=== PATIENT | female | born 1985 ===

== ENCOUNTER 2019-08-10 05:12 | Inpatient (IN) | payer MEDICAID ==
[2019-08-10] MEDS ORDERED: Lidocaine 1% 50 ML MDV INJECT PRN (05:47)
[2019-08-10] MEDS ORDERED: Tranexamic Acid 1,000 MG in Sodium Chloride 0.9% 100 ML IV PRN (05:47)
[2019-08-10] MEDS ORDERED: Sodium Chloride 0.9% 10 ML Syringe FLUSH PRN (05:47)
[2019-08-10] MEDS ORDERED: Ondansetron 4 MG/2 ML SDV IVPUSH PRN (05:47)
[2019-08-10] MEDS ORDERED: Water For Irrigation,Sterile 1,000 ML Container IRR PRN (05:47)
[2019-08-10] MEDS ORDERED: Misoprostol 200 MCG Tab PO PRN (05:47)
[2019-08-10] MEDS ORDERED: Methylergonovine 0.2 MG/1 ML Amp IM PRN (05:47)
[2019-08-10] MEDS ORDERED: Sodium Chloride 0.9% 2.5 ML Syringe FLUSH PRN (05:47)
[2019-08-10] MEDS ORDERED: Carboprost Tromethamine 250 MCG/1 ML Amp IM PRN (05:47)
[2019-08-10] MEDS ORDERED: Nalbuphine 10 MG/1 ML Vial IVPUSH PRN (05:47)
[2019-08-10] MEDS ORDERED: Sodium Chloride 0.9% 10 ML SDV IV PRN (05:47)
[2019-08-10] MEDS ORDERED: Terbutaline 1 MG/ML SDV SUBCUT PRN (05:52)
[2019-08-10] MEDS ORDERED: Oxytocin/0.9 % Sodium Chloride 30 UNIT/500 ML BAG IV SCH ×2 (06:00)
[2019-08-10] MEDS: Lactated Ringers 1,000 ML IV SCH ×2 (06:41→10:14)
[2019-08-10] MEDS ORDERED: fentaNYL 100 MCG/2 ML SDV ONE (08:50)
[2019-08-10] MEDS ORDERED: Ropivacaine HCl/PF 100 ML ONE (08:50)
--- NOTE | 2019-08-10 08:54 | PCM.LDHP ---
L&D History of Present Illness - General Date of Service: 08/10/19 Admit Problem/Dx: Patient Status Order with Admit Dx/Problem 08/10/19 05:48 Patient Status [ADT] Routine Admission Diagnosis/Problem Admission Diagnosis/Problem 08/10/19 08:48 33yo EDC by LMP 07/28/2019 41 6/7wks Trans from [facility] and is followed by Dr Suarez in the clinic. O+, RI, GBS neg. IOL postdates. Source of Information: Patient History Limitations: Reports: No Limitations - History of Present Illness Timing/Duration: Reports: minutes: Location, : Reports: Abdomen Quality: Reports: Stabbing, Throbbing Severity: Moderate Improves with: Reports: None Worsens with: Reports: None Associated Symptoms: Reports: N - Related Data Allergies/Adverse Reactions: Allergies Allergy/AdvReac Type Severity Reaction Status Date / Time No Known Allergies Allergy Verified 08/10/19 05:46 Past Medical History HEENT History: Reports: None Cardiovascular History: Reports: None Respiratory History: Reports: None Gastrointestinal History: Reports: None Genitourinary History: Reports: None 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: 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 History: Reports: None Neurological History: Reports: None Psychiatric History: Reports: None Endocrine/Metabolic History: Reports: None Hematologic History: Reports: None Immunologic History: Reports: None Oncologic (Cancer) History: Reports: None Dermatologic History: Reports: None - Infectious Disease History Infectious Disease History: Reports: Chicken Pox - Past Surgical History Head Surgeries/Procedures: Reports: None HEENT Surgical History: Reports: None Cardiovascular Surgical History: Reports: None Respiratory Surgical History: Reports: None GI Surgical History: Reports: None Female Surgical History: Reports: None Endocrine Surgical History: Reports: None Neurological Surgical History: Reports: None 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 Surgical History: Reports: None Oncologic Surgical History: Reports: None Dermatological Surgical History: Reports: None Social & Family History - Family History HEENT: Reports: None Cardiac: Reports: None Respiratory: Reports: None GI: Reports: None : Reports: None OBGYN: Reports: None 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: Reports: None Neurological: Reports: None Psychiatric: Reports: None Endocrine/Metabolic: Reports: None Hematologic: Reports: None Immunologic: Reports: None Dermatologic: Reports: None Oncologic: Reports: None - Tobacco Use Smoking Status *Q: Never Smoker Second Hand Smoke Exposure: No - Caffeine Use Caffeine Use: Reports: None - Recreational Drug Use Recreational Drug Use: No H&P Review of Systems - Review of Systems: Review Of Systems: See Below General: Reports: No Symptoms HEENT: Reports: No Symptoms Pulmonary: Reports: No Symptoms Cardiovascular: Reports: No Symptoms Gastrointestinal: Reports: No Symptoms Genitourinary: Reports: No Symptoms 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: Reports: No Symptoms Skin: Reports: No Symptoms Psychiatric: Reports: No Symptoms Neurological: Reports: No Symptoms Hematologic/Lymphatic: Reports: No Symptoms Immunologic: Reports: No Symptoms L&D Exam - Exam Exam: See Below - Vital Signs Weight: 203 kg - OB Specific Contraction Intensity: Moderate Movement: Active Heart Tones: Present Heart Tones per Min: 145 Heart Rate (FHR) Variability: Moderate (6-25 bmp) Presentation: Vertex - Romero Score Romero Score Cervix Position: Anterior Romero Score Consistency: Soft Romero Score Effacement: 51-70% Romero Score Dilation: 3-4 cm Romero Score Infant's Station: -3 Romero Score Total: 8 - Exam General: Alert, Oriented, Cooperative HEENT: Hearing Intact Lungs: Normal Respiratory Effort GI/Abdominal Exam: Soft, Non-Tender, Pelvis Stable Rectal Exam: Deferred Genitourinary: Normal external exam, Normal bimanual exam, Cervical dilitation. No: Cervical fluid, Vaginal bleeding Back Exam: Normal Inspection, Full Range of Motion Extremities: Normal Inspection, Normal Range of Motion, Non-Tender, No Pedal Edema Skin: Warm, Dry, Intact Neurological: Cranial Nerves Intact, Reflexes Equal Bilateral, Strength Equal Bilateral, Normal Gait, Normal Speech, Normal Tone, Sensation Intact Psychiatric: Alert, Normal Affect, Normal Mood - Patient Data Lab Results Last 24 hrs: Laboratory Results - last 24 hr 08/10/19 08/10/19 Range/Units 06:09 06:09 WBC 10.64 (4.0-11.0) K/uL RBC 4.56 (4.30-5.90) M/uL Hgb 12.6 (12.0-16.0) g/dL Hct 38.5 (36.0-46.0) % MCV 84.4 (80.0-98.0) fL MCH 27.6 (27.0-32.0) pg MCHC 32.7 (31.0-37.0) g/dL RDW Std Deviation 40.0 (28.0-62.0) fl RDW Coeff of Samantha 13 (11.0-15.0) % Plt Count 313 (150-400) K/uL MPV 9.80 (7.40-12.00) fL Nucleated RBC % 0.0 /100WBC Nucleated RBCs # 0 K/uL Blood Type O POSITIVE Antibody Screen NEGATIVE Result Diagrams: 08/10/19 06:09 - Problem List (1) Grand multiparity in labor and delivery SNOMED Code(s): 389323308, 650786508 ICD Code: O09.40 - SUPERVISION OF W GRAND MULTIPARITY, UNSP TRIMESTER Status: Acute Priority: High Current Visit: Yes Qualifiers: Trimester: third trimester Qualified Code(s): O09.43 - Supervision of with grand multiparity, third trimester (2) Limited care SNOMED Code(s): 910369404 ICD Code: O09.30 - SUPRVSN OF PREG W INSUFFICIENT ANTENAT CARE, UNSP TRIMESTER Status: Acute Priority: High Current Visit: Yes Qualifiers: Trimester: third trimester Qualified Code(s): O09.33 - Supervision of with insufficient care, third trimester Problem List Initiated/Reviewed/Updated: Yes Orders Last 24hrs: Active Orders 24 hr Category Date Time Status Patient Status [ADT] Routine ADT 08/10/19 05:48 Active Bedrest Bathroom Privileges [RC] ASDIRECTED Care 08/10/19 05:52 Active Communication Order [RC] ASDIRECTED Care 08/10/19 05:52 Active May Shower [RC] ASDIRECTED Care 08/10/19 05:48 Active Notify Provider [RC] PRN Care 08/10/19 05:48 Active Oxygen Therapy [RC] ASDIRECTED Care 08/10/19 05:52 Active Up ad Nahomy [RC] ASDIRECTED Care 08/10/19 05:48 Active Vital Signs [RC] PER UNIT ROUTINE Care 08/10/19 05:48 Active Regular Diet [DIET] Diet 08/10/19 Breakfast Active RAPID PLASMA REAGIN, QUANT [REF] Routine Lab 08/10/19 06:09 Received Carboprost Tromethamine [Hemabate DS] Med 08/10/19 05:47 Active 250 mcg IM ASDIRECTED PRN Lactated Ringers [Ringers, Lactated] 1,000 ml Med 08/10/19 06:00 Active IV ASDIRECTED Lidocaine 1% [Xylocaine 1%] Med 08/10/19 05:47 Active 50 ml INJECT ONETIME PRN Methylergonovine [Methergine] Med 08/10/19 05:47 Active 0.2 mg IM ASDIRECTED PRN Nalbuphine [Nubain] Med 08/10/19 05:47 Active 10 mg IVPUSH Q1H PRN Ondansetron [Zofran] Med 08/10/19 05:47 Active 4 mg IVPUSH Q6H PRN Oxytocin/0.9 % Sodium Chloride [Oxytocin 30 Unit/500 ML Med 08/10/19 06:00 Active -NS] 30 unit in 500 ml IV TITRATE Oxytocin/0.9 % Sodium Chloride [Oxytocin 30 Unit/500 ML Med 08/10/19 06:00 Active -NS] 30 unit in 500 ml IV TITRATE Sodium Chloride 0.9% [Normal Saline] Med 08/10/19 05:47 Active 10 ml IV ASDIRECTED PRN Sodium Chloride 0.9% [Saline Flush] Med 08/10/19 05:47 Active 10 ml FLUSH ASDIRECTED PRN Sodium Chloride 0.9% [Saline Flush] Med 08/10/19 05:47 Active 2.5 ml FLUSH ASDIRECTED PRN Terbutaline [Brethine] Med 08/10/19 05:52 Active 0.25 mg SUBCUT ASDIRECTED PRN Tranexamic Acid [Cyklokapron] 1,000 mg Med 08/10/19 05:47 Active Sodium Chloride 0.9% [Normal Saline] 100 ml IV ONETIME Water For Irrigation,Sterile [Sterile Water for Med 08/10/19 05:47 Active Irrigation] 1,000 ml IRR ASDIRECTED PRN miSOPROStoL [Cytotec] Med 08/10/19 05:47 Active 200 mcg PO ONETIME PRN Scalp Electrode [WOMSER] Per Unit Routine Oth 08/10/19 05:48 Ordered Medication Administration Instruction [OM.PC] Q3H Oth 08/10/19 06:00 Ordered Peripheral IV Insertion Adult [OM.PC] Routine Oth 08/10/19 05:48 Ordered Resuscitation Status Routine Resus Stat 08/10/19 05:47 Ordered Medication Orders Carboprost Tromethamine (Hemabate Ds) 250 mcg IM ASDIRECTED PRN PRN Reason: Post Hemorrhage Lactated Ringer's (Ringers, Lactated) 1,000 mls @ 150 mls/hr IV ASDIRECTED ORI Last Admin: 08/10/19 06:41 Dose: 150 mls/hr Oxytocin/Sodium Chloride (Oxytocin 30 Unit/500 Ml-Ns) 30 unit in 500 mls @ 999 mls/hr IV TITRATE ORI Tranexamic Acid 1,000 mg/ (Sodium Chloride) 110 mls @ 660 mls/hr IV ONETIME PRN PRN Reason: Bleeding Oxytocin/Sodium Chloride (Oxytocin 30 Unit/500 Ml-Ns) 30 unit in 500 mls @ 2 mls/hr IV TITRATE ORI; Protocol Last Titration: 08/10/19 08:30 Dose: 8 munits/min, 8 mls/hr Titration: 08/10/19 08:04 Dose: 6 munits/min, 6 mls/hr Titration: 08/10/19 07:20 Dose: 4 munits/min, 4 mls/hr Admin: 08/10/19 06:45 Dose: 2 munits/min, 2 mls/hr Lidocaine HCl (Xylocaine 1%) 50 ml INJECT ONETIME PRN PRN Reason: Laceration repair Methylergonovine Maleate (Methergine) 0.2 mg IM ASDIRECTED PRN PRN Reason: Post Hemorrhage Misoprostol (Cytotec) 200 mcg PO ONETIME PRN PRN Reason: Post Hemorrhage Nalbuphine HCl (Nubain) 10 mg IVPUSH Q1H PRN PRN Reason: Pain (severe 7-10) Ondansetron HCl (Zofran) 4 mg IVPUSH Q6H PRN PRN Reason: Nausea/Vomiting Sodium Chloride (Saline Flush) 10 ml FLUSH ASDIRECTED PRN PRN Reason: Keep Vein Open Sodium Chloride (Saline Flush) 2.5 ml FLUSH ASDIRECTED PRN PRN Reason: Keep Vein Open Sodium Chloride (Normal Saline) 10 ml IV ASDIRECTED PRN PRN Reason: IV Use Sterile Water (Sterile Water For Irrigation) 1,000 ml IRR ASDIRECTED PRN PRN Reason: delivery Terbutaline Sulfate (Brethine) 0.25 mg SUBCUT ASDIRECTED PRN PRN Reason: Tacysystole Assessment/Plan Comment:: IOL A: 33yo EDC by LMP 07/28/2019 41 6/7wks Trans from [place] and is followed by Dr Suarez in the clinic. O+, RI, GBS neg. IOL postdates. P: Admit, epidural now. Anticipate , Dr Suarez updated.
--- NOTE | 2019-08-10 09:12 | PCM.PREANE ---
Preanesthetic Assessment - Anesthesia/Transfusion/Family Hx Anesthesia History: Prior Anesthesia Without Reaction Family History of Anesthesia Reaction: No Transfusion History: No Prior Transfusion(s) Type of Transfusion Reactions: Reports: Unknown - Physical Assessment NPO Status Date: 08/10/19 NPO Status Time: 06:00 Height: 1.78 m Weight: 203 kg ASA Class: 1 (1) Mental Status: Alert & Oriented x3 Dentition: Reports: Normal Dentition - Lab Values: Laboratory Last Values WBC 10.64 K/uL (4.0-11.0) 08/10/19 06:09 RBC 4.56 M/uL (4.30-5.90) 08/10/19 06:09 Hgb 12.6 g/dL (12.0-16.0) 08/10/19 06:09 Hct 38.5 % (36.0-46.0) 08/10/19 06:09 MCV 84.4 fL (80.0-98.0) 08/10/19 06:09 MCH 27.6 pg (27.0-32.0) 08/10/19 06:09 MCHC 32.7 g/dL (31.0-37.0) 08/10/19 06:09 RDW Std Deviation 40.0 fl (28.0-62.0) 08/10/19 06:09 RDW Coeff of Samantha 13 % (11.0-15.0) 08/10/19 06:09 Plt Count 313 K/uL (150-400) 08/10/19 06:09 MPV 9.80 fL (7.40-12.00) 08/10/19 06:09 Nucleated RBC % 0.0 /100WBC 08/10/19 06:09 Nucleated RBCs # 0 K/uL 08/10/19 06:09 Blood Type O POSITIVE 08/10/19 06:09 Antibody Screen NEGATIVE 08/10/19 06:09 - Allergies Allergies/Adverse Reactions: Allergies Allergy/AdvReac Type Severity Reaction Status Date / Time No Known Allergies Allergy Verified 08/10/19 05:46 - Acknowledgements Anesthesia Type Planned: Epidural Pt an Appropriate Candidate for the Planned Anesthesia: Yes Alternatives and Risks of Anesthesia Discussed w Pt/Guardian: Yes Pt/Guardian Understands and Agrees with Anesthesia Plan: Yes PreAnesthesia Questionnaire HEENT History: Reports: None Cardiovascular History: Reports: None Respiratory History: Reports: None Gastrointestinal History: Reports: None Genitourinary History: Reports: 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: 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 History: Reports: None Neurological History: Reports: None Psychiatric History: Reports: None Endocrine/Metabolic History: Reports: None Hematologic History: Reports: None Immunologic History: Reports: None Oncologic (Cancer) History: Reports: None Dermatologic History: Reports: None - Infectious Disease History Infectious Disease History: Reports: Chicken Pox - Past Surgical History Head Surgeries/Procedures: Reports: None HEENT Surgical History: Reports: None Cardiovascular Surgical History: Reports: None Respiratory Surgical History: Reports: None GI Surgical History: Reports: None Female Surgical History: Reports: None Endocrine Surgical History: Reports: None Neurological Surgical History: Reports: None 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 Surgical History: Reports: None Oncologic Surgical History: Reports: None Dermatological Surgical History: Reports: None - SUBSTANCE USE Smoking Status *Q: Never Smoker Second Hand Smoke Exposure: No Recreational Drug Use History: No - CURRENT (IN HOUSE) MEDS Current Meds: Current Medications Carboprost Tromethamine (Hemabate Ds) 250 mcg IM ASDIRECTED PRN PRN Reason: Post Hemorrhage Lactated Ringer's (Ringers, Lactated) 1,000 mls @ 150 mls/hr IV ASDIRECTED ORI Last Admin: 08/10/19 06:41 Dose: 150 mls/hr Oxytocin/Sodium Chloride (Oxytocin 30 Unit/500 Ml-Ns) 30 unit in 500 mls @ 999 mls/hr IV TITRATE ORI Tranexamic Acid 1,000 mg/ (Sodium Chloride) 110 mls @ 660 mls/hr IV ONETIME PRN PRN Reason: Bleeding Oxytocin/Sodium Chloride (Oxytocin 30 Unit/500 Ml-Ns) 30 unit in 500 mls @ 2 mls/hr IV TITRATE ORI; Protocol Last Titration: 08/10/19 09:10 Dose: 10 munits/min, 10 mls/hr Lidocaine HCl (Xylocaine 1%) 50 ml INJECT ONETIME PRN PRN Reason: Laceration repair Methylergonovine Maleate (Methergine) 0.2 mg IM ASDIRECTED PRN PRN Reason: Post Hemorrhage Misoprostol (Cytotec) 200 mcg PO ONETIME PRN PRN Reason: Post Hemorrhage Nalbuphine HCl (Nubain) 10 mg IVPUSH Q1H PRN PRN Reason: Pain (severe 7-10) Ondansetron HCl (Zofran) 4 mg IVPUSH Q6H PRN PRN Reason: Nausea/Vomiting Sodium Chloride (Saline Flush) 10 ml FLUSH ASDIRECTED PRN PRN Reason: Keep Vein Open Sodium Chloride (Saline Flush) 2.5 ml FLUSH ASDIRECTED PRN PRN Reason: Keep Vein Open Sodium Chloride (Normal Saline) 10 ml IV ASDIRECTED PRN PRN Reason: IV Use Sterile Water (Sterile Water For Irrigation) 1,000 ml IRR ASDIRECTED PRN PRN Reason: delivery Terbutaline Sulfate (Brethine) 0.25 mg SUBCUT ASDIRECTED PRN PRN Reason: Tacysystole Discontinued Medications Fentanyl (Sublimaze) Confirm Administered Dose 100 mcg .ROUTE .STFeedzai-MED ONE Stop: 08/10/19 08:51 Ropivacaine (Naropin 0.2%) Confirm Administered Dose 100 mls @ as directed .ROUTE .STFeedzai-MED ONE Stop: 08/10/19 08:51
--- NOTE | 2019-08-10 09:15 | PCM.PRNOTE ---
- Free Text/Narrative Note: Anes Note Patient requests epidural for L&D. Sitting position, Level L3-L4 midline approach. Sterile technique, chloraprep scrub to lumbar area. Sterile fenestrated drape applied. Epidural space easily achieved using LUIS ALBERTO technique. LUIS ALBERTO at 3 cm. Epidural cathreaded 5 cm wtih ease. Secure at skin at 9 cm using sterile clear adhesive dressing. 0900 test 3 cc 1.5% lido with epi negative 0903 load 10 cc 0.2% ropivicaine with 1 mcg cc fentanyl in slow divided doses. 09 pump started with 90 cc same solution at 8 cc hr with 6 cc q 20 min prn bolus. Anish well. Time with patient [id number] Simone Jones CRNA
--- NOTE | 2019-08-10 13:14 | PCM.DEL ---
L & D Note - General Info Date of Service: 08/10/19 Mother's Due Date: 07/28/19 - Delivery Note Cervical Ripening Method: Oxytocin Delivery Outcome: Livebirth Delivery Mode: Spontaneous Presentation: Vertex Nuchal Cord: None Anesthesia Type: Epidural Amniotic Fluid Description: Clear Episiotomy Type: None Laceration: None Placenta: Intact, Spontaneous Cord: 3 Vessels Estimated Blood Loss: 100 Resuscitation Needed: No [place]: Stimulated Score 1 min: 8 Score 5 min: 9 Second Stage Interventions: Reports: Pushing, Pulls Own Legs Back Induction Criteria - Romero Score Romero Score Dilation: 3-4 cm Romero Score Effacement: 60-70% Romero Score Infant's Station: -3 Romero Score Consistency: Medium Romero Score Cervix Position: Midposition Romero Score Total: 6 Romero Score Presenting Part: Reports: Cephalic - Induction Gestational Age >/= 39 wks: Yes Estimated Pelvis: Reports: Adequate Reassuring Monitoring Strip: Yes Absence of Tachy Systole: Yes - General Info Date of Service: 08/10/19 Admission Dx/Problem (Free Text): Patient Status Order with Admit Dx/Problem 08/10/19 05:48 Patient Status [ADT] Routine Admission Diagnosis/Problem Admission Diagnosis/Problem 08/10/19 08:48 33yo EDC by LMP 07/28/2019 41 6/7wks Trans from [place] and is followed by Dr Suarez in the clinic. O+, RI, GBS neg. IOL postdates. Functional Status: Reports: Pain Controlled, Tolerating Diet - Review of Systems General: Reports: No Symptoms HEENT: Reports: No Symptoms Pulmonary: Reports: No Symptoms Cardiovascular: Reports: No Symptoms Gastrointestinal: Reports: No Symptoms Genitourinary: Reports: No Symptoms 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: Reports: No Symptoms Skin: Reports: No Symptoms Neurological: Reports: No Symptoms Psychiatric: Reports: No Symptoms - Patient Data Weight - Most Recent: 203 kg Lab Results Last 24 Hours: Laboratory Results - last 24 hr 08/10/19 08/10/19 Range/Units 06:09 06:09 WBC 10.64 (4.0-11.0) K/uL RBC 4.56 (4.30-5.90) M/uL Hgb 12.6 (12.0-16.0) g/dL Hct 38.5 (36.0-46.0) % MCV 84.4 (80.0-98.0) fL MCH 27.6 (27.0-32.0) pg MCHC 32.7 (31.0-37.0) g/dL RDW Std Deviation 40.0 (28.0-62.0) fl RDW Coeff of Samantha 13 (11.0-15.0) % Plt Count 313 (150-400) K/uL MPV 9.80 (7.40-12.00) fL Nucleated RBC % 0.0 /100WBC Nucleated RBCs # 0 K/uL Blood Type O POSITIVE Antibody Screen NEGATIVE Med Orders - Current: Current Medications Carboprost Tromethamine (Hemabate Ds) 250 mcg IM ASDIRECTED PRN PRN Reason: Post Hemorrhage Lactated Ringer's (Ringers, Lactated) 1,000 mls @ 150 mls/hr IV ASDIRECTED ORI Last Admin: 08/10/19 10:14 Dose: 150 mls/hr Oxytocin/Sodium Chloride (Oxytocin 30 Unit/500 Ml-Ns) 30 unit in 500 mls @ 999 mls/hr IV TITRATE ORI Tranexamic Acid 1,000 mg/ (Sodium Chloride) 110 mls @ 660 mls/hr IV ONETIME PRN PRN Reason: Bleeding Oxytocin/Sodium Chloride (Oxytocin 30 Unit/500 Ml-Ns) 30 unit in 500 mls @ 2 mls/hr IV TITRATE ORI; Protocol Last Titration: 08/10/19 11:18 Dose: 14 munits/min, 14 mls/hr Lidocaine HCl (Xylocaine 1%) 50 ml INJECT ONETIME PRN PRN Reason: Laceration repair Methylergonovine Maleate (Methergine) 0.2 mg IM ASDIRECTED PRN PRN Reason: Post Hemorrhage Misoprostol (Cytotec) 200 mcg PO ONETIME PRN PRN Reason: Post Hemorrhage Nalbuphine HCl (Nubain) 10 mg IVPUSH Q1H PRN PRN Reason: Pain (severe 7-10) Ondansetron HCl (Zofran) 4 mg IVPUSH Q6H PRN PRN Reason: Nausea/Vomiting Sodium Chloride (Saline Flush) 10 ml FLUSH ASDIRECTED PRN PRN Reason: Keep Vein Open Sodium Chloride (Saline Flush) 2.5 ml FLUSH ASDIRECTED PRN PRN Reason: Keep Vein Open Sodium Chloride (Normal Saline) 10 ml IV ASDIRECTED PRN PRN Reason: IV Use Sterile Water (Sterile Water For Irrigation) 1,000 ml IRR ASDIRECTED PRN PRN Reason: delivery Terbutaline Sulfate (Brethine) 0.25 mg SUBCUT ASDIRECTED PRN PRN Reason: Tacysystole Discontinued Medications Fentanyl (Sublimaze) Confirm Administered Dose 100 mcg .ROUTE .STK-MED ONE Stop: 08/10/19 08:51 Ropivacaine (Naropin 0.2%) Confirm Administered Dose 100 mls @ as directed .ROUTE .STK-MED ONE Stop: 08/10/19 08:51 - Exam General: Alert, Oriented, Cooperative Lungs: Normal Respiratory Effort GI/Abdominal Exam: Soft, Non-Tender, Pelvis Stable (Female) Exam: Normal External Exam, Normal Bimanual Exam, Vaginal Bleeding. No: Vaginal Lesions, Vaginal Tears Back Exam: Normal Inspection, Full Range of Motion Extremities: Normal Inspection, Normal Range of Motion, Non-Tender, No Pedal Edema Skin: Warm, Dry, Intact Neurological: No New Focal Deficit, Normal Speech, Normal Tone, Strength Equal Bilateral Psy/Mental Status: Alert, Normal Affect, Normal Mood - Problem List & Annotations (1) Grand multiparity in labor and delivery SNOMED Code(s): 134449155, 260799146 Code(s): O09.40 - SUPERVISION OF W GRAND MULTIPARITY, UNSP TRIMESTER Status: Acute Priority: High Current Visit: Yes Qualifiers: Trimester: third trimester Qualified Code(s): O09.43 - Supervision of with grand multiparity, third trimester (2) Limited care SNOMED Code(s): 062776627 Code(s): O09.30 - SUPRVSN OF PREG W INSUFFICIENT ANTENAT CARE, UNSP TRIMESTER Status: Acute Priority: High Current Visit: Yes Qualifiers: Trimester: third trimester Qualified Code(s): O09.33 - Supervision of with insufficient care, third trimester (3) (normal spontaneous vaginal delivery) SNOMED Code(s): 94650560, 444854026 Code(s): O80 - ENCOUNTER FOR FULL-TERM UNCOMPLICATED DELIVERY Status: Acute Priority: High Current Visit: Yes - Problem List Review Problem List Initiated/Reviewed/Updated: Yes - My Orders Last 24 Hours: My Active Orders 08/10/19 05:47 Carboprost Tromethamine [Hemabate DS] 250 mcg IM ASDIRECTED PRN Lidocaine 1% [Xylocaine 1%] 50 ml INJECT ONETIME PRN Methylergonovine [Methergine] 0.2 mg IM ASDIRECTED PRN Nalbuphine [Nubain] 10 mg IVPUSH Q1H PRN Ondansetron [Zofran] 4 mg IVPUSH Q6H PRN Sodium Chloride 0.9% [Normal Saline] 10 ml IV ASDIRECTED PRN Sodium Chloride 0.9% [Saline Flush] 10 ml FLUSH ASDIRECTED PRN Sodium Chloride 0.9% [Saline Flush] 2.5 ml FLUSH ASDIRECTED PRN Tranexamic Acid [Cyklokapron] 1,000 mg Sodium Chloride 0.9% [Normal Saline] 100 ml IV ONETIME Water For Irrigation,Sterile [Sterile Water for Irrigation] 1,000 ml IRR ASDIRECTED PRN miSOPROStoL [Cytotec] 200 mcg PO ONETIME PRN Resuscitation Status Routine 08/10/19 05:48 May Shower [RC] ASDIRECTED Notify Provider [RC] PRN Up ad [place]ahomy [RC] ASDIRECTED Vital Signs [RC] PER UNIT ROUTINE Scalp Electrode [WOMSER] Per Unit Routine Peripheral IV Insertion Adult [OM.PC] Routine 08/10/19 06:00 Lactated Ringers [Ringers, Lactated] 1,000 ml IV ASDIRECTED Oxytocin/0.9 % Sodium Chloride [Oxytocin 30 Unit/500 ML-NS] 30 unit in 500 ml IV TITRATE 08/10/19 06:09 RAPID PLASMA REAGIN, QUANT [REF] Routine - Plan Plan:: IOL A: 33yo EDC by LMP 07/28/2019 41 6/7wks Trans from [place] and is followed by Dr Suarez in the clinic. O+, RI, GBS neg. IOL postdates. P: Admit, epidural now. Anticipate , Dr Suarez updated. Delivery A: of viable male (Arthur), APGARS 8/9, Wt: 9lb 6oz. EBL 100cc, intact perineum. Mother and baby stable P: Routine pp plan of care
[2019-08-10] MEDS ORDERED: Ibuprofen 800 MG Tab PO PRN (13:15)
[2019-08-10] MEDS ORDERED: Docusate Sodium 100 MG Cap PO PRN (13:15)
[2019-08-10] MEDS ORDERED: Lanolin 100% Cream 7 GM Tube TOP PRN (13:15)
[2019-08-10] MEDS ORDERED: Benzocaine/Menthol 20%-0.5% Spray 78 GM Cannister TOP PRN (13:15)
[2019-08-10] MEDS ORDERED: Acetaminophen 500 MG Tab PO PRN ×2 (13:15)
[2019-08-10] MEDS ORDERED: Bisacodyl 10 MG Supp RECTAL PRN (13:15)
[2019-08-10] MEDS ORDERED: Witch Hazel Medicated Pads 40/Jar TOP PRN (13:15)
[2019-08-10] MEDS ORDERED: Ibuprofen 400 MG Tab PO PRN (13:15)
[2019-08-10] MEDS ORDERED: oxyCODONE 5 MG Tab PO PRN (13:15)
--- NOTE | 2019-08-11 07:21 | PCM.POSTAN ---
POST ANESTHESIA ASSESSMENT - MENTAL STATUS Mental Status: Alert - VITAL SIGNS Vital Signs: Last Vital Signs Temp 36.5 C 08/11/19 06:00 Pulse 83 08/10/19 20:30 Resp 18 08/11/19 06:00 BP 113/64 08/11/19 06:00 Pulse Ox 96 08/11/19 06:00 - RESPIRATORY Respiratory Status: Respiratory Rate WNL - CARDIOVASCULAR CV Status: Pulse Rate WNL - GASTROINTESTINAL GI Status: No Symptoms - POST OP HYDRATION Hydration Status: Adequate & Stable
--- NOTE | 2019-08-11 07:21 | PCM48HPAN ---
Post Anesthesia Note - EVALUATION WITHIN 48HRS OF ANESTHETIC Vital Signs in Normal Range: Yes Patient Participated in Evaluation: Yes Respiratory Function Stable: Yes Airway Patent: Yes Cardiovascular Function Stable: Yes Hydration Status Stable: Yes Pain Control Satisfactory: Yes Nausea and Vomiting Control Satisfactory: Yes Mental Status Recovered: Yes Vital Signs: Last Vital Signs Temp 36.5 C 08/11/19 06:00 Pulse 83 08/10/19 20:30 Resp 18 08/11/19 06:00 BP 113/64 08/11/19 06:00 Pulse Ox 96 08/11/19 06:00
--- NOTE | 2019-08-11 08:32 | PCM.DCSUM1 ---
Discharge Summary - Hospital Course Free Text/Narrative:: Discharge home with . Follow up in 6 weeks for . Diagnosis: Stroke: No Modified [place] Scale: No Symptoms at All Modified [place] Scale Score: 0 - Discharge Data Discharge Date: 08/11/19 Discharge Disposition: Home, Self-Care 01 Condition: Good - Referral to Home Health Primary Care Physician: PCP None - Discharge Diagnosis/Problem(s) (1) Grand multiparity in labor and delivery SNOMED Code(s): 916858727, 091000302 ICD Code: O09.40 - SUPERVISION OF W GRAND MULTIPARITY, UNSP TRIMESTER Status: Acute Priority: High Current Visit: Yes Qualifiers: Trimester: third trimester Qualified Code(s): O09.43 - Supervision of with grand multiparity, third trimester (2) Limited care SNOMED Code(s): 902817098 ICD Code: O09.30 - SUPRVSN OF PREG W INSUFFICIENT ANTENAT CARE, UNSP TRIMESTER Status: Acute Priority: High Current Visit: Yes Qualifiers: Trimester: third trimester Qualified Code(s): O09.33 - Supervision of with insufficient care, third trimester (3) (normal spontaneous vaginal delivery) SNOMED Code(s): 37929033, 064954455 ICD Code: O80 - ENCOUNTER FOR FULL-TERM UNCOMPLICATED DELIVERY Status: Acute Priority: High Current Visit: Yes - Patient Instructions Diet: Usual Diet as Tolerated Activity: As Tolerated, No Strenuous Activities, Rest and Relax Today Driving: May Drive Today Showering/Bathing: May Shower Notify Provider of: Fever, Increased Pain, Swelling and Redness, Nausea and/or Vomiting Other/Special Instructions: Discharge home with . Follow up in 6 weeks for . - Discharge Plan *PRESCRIPTION DRUG MONITORING PROGRAM REVIEWED*: Not Applicable *COPY OF PRESCRIPTION DRUG MONITORING REPORT IN PATIENT ASHELY: Not Applicable Oxygen Therapy Mode: Room Air - Discharge Summary/Plan Comment DC Time >30 min.: Yes Discharge Summary/Plan Comment: Discharge home with infant. Follow up in 6 weeks for . - General Info Date of Service: 08/11/19 Admission Dx/Problem (Free Text: Patient Status Order with Admit Dx/Problem 08/10/19 05:48 Patient Status [ADT] Routine Admission Diagnosis/Problem Admission Diagnosis/Problem 08/10/19 08:48 33yo EDC by LMP 07/28/2019 41 6/7wks Trans from [place] and is followed by Dr Suarez in the clinic. O+, RI, GBS neg. IOL postdates. Functional Status: Reports: Pain Controlled, Tolerating Diet, Ambulating, Urinating - Review of Systems General: Reports: No Symptoms HEENT: Reports: No Symptoms Pulmonary: Reports: No Symptoms Cardiovascular: Reports: No Symptoms Gastrointestinal: Reports: No Symptoms Genitourinary: Reports: No Symptoms 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: Reports: No Symptoms Skin: Reports: No Symptoms Neurological: Reports: No Symptoms Psychiatric: Reports: No Symptoms - Patient Data Vitals - Most Recent: Last Vital Signs Temp 36.5 C 08/11/19 06:00 Pulse 83 08/10/19 20:30 Resp 18 08/11/19 06:00 BP 113/64 08/11/19 06:00 Pulse Ox 96 08/11/19 06:00 Weight - Most Recent: 203 kg Med Orders - Current: Current Medications Acetaminophen (Tylenol Extra Strength) 500 mg PO Q4H PRN PRN Reason: Pain Acetaminophen (Tylenol Extra Strength) 1,000 mg PO Q4H PRN PRN Reason: Pain Benzocaine/Menthol (Dermoplast Pain Relief 20%-0.5% Coleman) 78 gm TOP ASDIRECTED PRN PRN Reason: Perineal Comfort Measure Bisacodyl (Dulcolax) 10 mg RECTAL ONETIME PRN PRN Reason: Constipation Docusate Sodium (Colace) 100 mg PO BID PRN PRN Reason: Constipation Emollient Ointment (Lansinoh Hpa) 0 gm TOP ASDIRECTED PRN PRN Reason: Sore Nipples Ibuprofen (Motrin) 400 mg PO Q4H PRN PRN Reason: Pain Ibuprofen (Motrin) 800 mg PO Q6H PRN PRN Reason: Pain Oxycodone HCl (Oxycodone) 5 mg PO Q2H PRN PRN Reason: Pain Witch Adelina (Tucks) 1 pad TOP ASDIRECTED PRN PRN Reason: comfort care Discontinued Medications Carboprost Tromethamine (Hemabate Ds) 250 mcg IM ASDIRECTED PRN PRN Reason: Post Hemorrhage Fentanyl (Sublimaze) Confirm Administered Dose 100 mcg .ROUTE .STK-MED ONE Stop: 08/10/19 08:51 Lactated Ringer's (Ringers, Lactated) 1,000 mls @ 150 mls/hr IV ASDIRECTED ORI Last Admin: 08/10/19 10:14 Dose: 150 mls/hr Oxytocin/Sodium Chloride (Oxytocin 30 Unit/500 Ml-Ns) 30 unit in 500 mls @ 999 mls/hr IV TITRATE ORI Tranexamic Acid 1,000 mg/ (Sodium Chloride) 110 mls @ 660 mls/hr IV ONETIME PRN PRN Reason: Bleeding Oxytocin/Sodium Chloride (Oxytocin 30 Unit/500 Ml-Ns) 30 unit in 500 mls @ 2 mls/hr IV TITRATE ORI; Protocol Last Titration: 08/10/19 11:18 Dose: 14 munits/min, 14 mls/hr Ropivacaine (Naropin 0.2%) Confirm Administered Dose 100 mls @ as directed .ROUTE .RUST-MED ONE Stop: 08/10/19 08:51 Lidocaine HCl (Xylocaine 1%) 50 ml INJECT ONETIME PRN PRN Reason: Laceration repair Methylergonovine Maleate (Methergine) 0.2 mg IM ASDIRECTED PRN PRN Reason: Post Hemorrhage Misoprostol (Cytotec) 200 mcg PO ONETIME PRN PRN Reason: Post Hemorrhage Nalbuphine HCl (Nubain) 10 mg IVPUSH Q1H PRN PRN Reason: Pain (severe 7-10) Ondansetron HCl (Zofran) 4 mg IVPUSH Q6H PRN PRN Reason: Nausea/Vomiting Sodium Chloride (Saline Flush) 10 ml FLUSH ASDIRECTED PRN PRN Reason: Keep Vein Open Sodium Chloride (Saline Flush) 2.5 ml FLUSH ASDIRECTED PRN PRN Reason: Keep Vein Open Sodium Chloride (Normal Saline) 10 ml IV ASDIRECTED PRN PRN Reason: IV Use Sterile Water (Sterile Water For Irrigation) 1,000 ml IRR ASDIRECTED PRN PRN Reason: delivery Terbutaline Sulfate (Brethine) 0.25 mg SUBCUT ASDIRECTED PRN PRN Reason: Tacysystole - Exam General: Reports: Alert, Oriented, Cooperative, No Acute Distress Lungs: Reports: Normal Respiratory Effort GI/Abdominal Exam: Soft, Pelvis Stable (Female) Exam: Deferred, Vaginal Bleeding Rectal (Female) Exam: Deferred Back Exam: Reports: Normal Inspection, Full Range of Motion Extremities: Normal Inspection, Normal Range of Motion, Non-Tender, No Pedal Edema Skin: Reports: Warm, Dry, Intact Neurological: Reports: No New Focal Deficit, Normal Speech, Normal Tone, Strength Equal Bilateral, Sensation Intact Psy/Mental Status: Reports: Alert, Normal Affect, Normal Mood
== END 2019-08-11 16:00 | disposition home or self-care (01) | DRG 807 ==
LOC: MW.OBCHECK 05:12 → MW.OB 05:13 → OBSVTOIN 12:53 → MW.OB 16:30
PROVIDERS: ADMIT Obstetrics & Gynecology; ATTEND Obstetrics & Gynecology
PROC: 10E0XZZ Delivery of Products of Conception, External Approach (ICD-10-PCS; principal; 2019-08-10)
PROC: 10907ZC Drainage of Amniotic Fluid, Therapeutic from Products of Conception, Via Natural or Artificial Opening (ICD-10-PCS; 2019-08-10)
PROC: 3E0R3BZ Introduction of Anesthetic Agent into Spinal Canal, Percutaneous Approach (ICD-10-PCS; 2019-08-10)
PROC: 00HU33Z Insertion of Infusion Device into Spinal Canal, Percutaneous Approach (ICD-10-PCS; 2019-08-10)
DX: O48.0 Post-term pregnancy (principal); Z37.0 Single live birth; Z3A.41 41 weeks gestation of pregnancy
CPT/HCPCS: 01967; 36415; 59025; 59409; 85027; 86593; 86850; 86900; 86901; J2590; J7120